=== PATIENT | male | born 2000 | race Caucasian/White ===

== ENCOUNTER 2021-07-02 10:26 | Emergency (ER) | payer BC, SELFPAY ==
[2021-07-02 10:35] VITALS: BP 137/55; PULSE 74; RESP 16; TEMP 36.8; O2SAT 100
--- NOTE | 2021-07-02 11:07 | ED.SKABFB ---
HPI - Skin/Abscess/Foreign Bdy General Chief complaint: Skin/Abscess/Foreign Body Stated complaint: rash Source: patient and RN notes reviewed Limitations: no limitations History of Present Illness HPI narrative: The patient, previously mostly healthy and athletic, presents with skin eruption. Patient states he has a shorter week history of eruption on his great toe. Symptoms are mild has not tried any OTC preparations. No injury, redness, discharge; he has had warts before-which may be an early stage now; discussed possible causes and will treat broadly. Related Data Home Medications Medication Instructions Recorded Confirmed No Home Medications 07/02/21 07/02/21 Allergies Allergy/AdvReac Type Severity Reaction Status Date / Time No Known Allergies Allergy Verified 07/02/21 10:35 Review of Systems Review of Systems: General/Constitutional: No weight loss,fever Eyes: N0: Redness,discharge Ears/Nose/Throat: No: Epistaxis,ear discharge Respiratory: Denies: Hemoptysis Gastrointestinal: No Vomiting, Bleeding-rectal Skin: No Lumps, REPORTS eruption Neurologic: No Focal Weakness,Sz Hematologic: Denies: Petechiae/Purpura Psychiatric: No: Suicida ideationl All Other Systems: Reviewed and Negative Exam Narrative: General Appearance: Well appearing, conjunctiva clear Mouth/Throat: Normal appearing, Normal lips,: Supple Respiratory: Airway patent, No respiratory distress MS-toe: Normal strength (mostly intact, limited flexion/extension by pain),no tenderness (nl ROM), no swelling (laterally), Other (no anterior drawer, no collateral laxity, Skin: Warm, Dry, Normal color, maculopapular eruption of the great toe on extensor aspect Neurological: A&O x3,, Normal affect Course Vital Signs Vital signs: Vital Signs Temperature 98.2 F 07/02/21 10:35 Pulse Rate 74 07/02/21 10:35 Respiratory Rate 16 07/02/21 10:35 Blood Pressure 137/55 L 07/02/21 10:35 Pulse Oximetry 100 07/02/21 10:35 Temperature 98.2 F 07/02/21 10:35 Pulse Rate 74 07/02/21 10:35 Respiratory Rate 16 07/02/21 10:35 Blood Pressure 137/55 L 07/02/21 10:35 Pulse Oximetry 100 07/02/21 10:35 Discharge Plan Discharge Clinical Impression: Rash of foot Patient Disposition: Home, Self-Care Condition: Stable Instructions: Plantar Wart (ED), Athlete's Foot (ED) Additional Instructions: You may also try OTC preparations [containing salicylic acid, Dr. Mejia's] or duct tape Prescriptions: New fluconazole 150 mg tablet 150 mg PO WEEKLY Qty: 2 RF: 1 No Action No Home Medications RF: 0 Follow-up/Referrals: UNKNOWN,DOCTOR [Primary Care Provider] -
== END 2021-07-02 11:17 | disposition home or self-care (01) ==
PROVIDERS: Emergency Provider Emergency Medicine
DX: R21 Rash and other nonspecific skin eruption (principal)
CPT/HCPCS: 99213; G0463